=== PATIENT | female | born 1940 | race Caucasian/White ===

== ENCOUNTER → 2016-10-13 | Outpatient (CLI) | payer MEDICARE ==
--- NOTE | 2016-10-13 13:37 | MM ---
Reason for exam: history of breast cancer, conservation therapy. Last mammogram was performed 1 year and 2 months ago. History: Patient is postmenopausal and has history of breast cancer at age 59. Family history of premenopausal breast cancer in sister at age 30. Malignant stereotactic core biopsy of the right breast, August 07, 2000. Benign excisional biopsy, May 30, 1997. 2 cyst aspirations of the right breast. Core biopsy of the right breast. Excisional biopsy. Lumpectomy of the right breast. Radiation therapy of the right breast. Took estrogen for 6 years. Took antineoplastic for 1 year. Physical Findings: Nurse did not find any significant physical abnormalities on exam. MG 3D Diag Mammo W/Cad JAN Bilateral CC and MLO view(s) were taken. Prior study comparison: August 09, 2015, bilateral MG 3d diag mammo w/cad JAN. August 04, 2014, bilateral MG diagnostic mammo w CAD JAN. There are scattered fibroglandular densities. Stable post operative changes in the right breast. These results were verbally communicated with the patient and result sheet given to the patient on 10/13/16. ASSESSMENT: Benign, BI-RAD 2 RECOMMENDATION: Follow-up diagnostic mammogram of both breasts in 1 year.
== END | disposition home or self-care (01) ==
LOC: RADMAMWWP 12:39
PROVIDERS: ATTEND Internal Medicine
DX: R92.8 Other abnormal and inconclusive findings on diagnostic imaging of breast (principal)
CPT/HCPCS: G0204; G0279

== ENCOUNTER → 2019-02-16 | Outpatient (CLI) | payer MEDICARE ==
--- NOTE | 2019-02-16 11:09 | MM ---
Reason for exam: additional evaluation requested from prior study. Last mammogram was performed 2 years and 4 months ago. History: Patient is postmenopausal and has history of breast cancer at age 59. Family history of premenopausal breast cancer in sister at age 30. Malignant stereotactic core biopsy of the right breast, August 07, 2000. Benign excisional biopsy, May 30, 1997. 2 cyst aspirations of the right breast. Core biopsy of the right breast. Excisional biopsy. Lumpectomy of the right breast. Radiation therapy of the right breast. Took estrogen for 6 years. Took antineoplastic for 1 year. Physical Findings: Nurse did not find any significant physical abnormalities on exam. MG 3D Diag Mammo W/Cad JAN Bilateral CC and MLO view(s) were taken. Prior study comparison: October 13, 2016, bilateral MG 3d diag mammo w/cad JAN. August 09, 2015, bilateral MG 3d diag mammo w/cad JAN. There are scattered fibroglandular densities. Post therapy change on the right. These results were verbally communicated with the patient and result sheet given to the patient on 02/16/19. ASSESSMENT: Benign, BI-RAD 2 RECOMMENDATION: Follow-up diagnostic mammogram of both breasts in 1 year.
== END | disposition home or self-care (01) ==
LOC: RADMAMWWP 10:04
PROVIDERS: ATTEND Internal Medicine
DX: Z08 Encounter for follow-up examination after completed treatment for malignant neoplasm (principal); Z85.3 Personal history of malignant neoplasm of breast
CPT/HCPCS: 77066; G0279; 77062

== ENCOUNTER → 2020-09-21 | Outpatient (CLI) | payer MEDICARE ==
--- NOTE | 2020-09-25 10:43 | MM ---
Reason for exam: screening (asymptomatic). Last mammogram was performed 1 year and 7 months ago. History: Patient is postmenopausal and has history of breast cancer at age 59. Family history of premenopausal breast cancer in sister at age 30. Malignant stereotactic core biopsy of the right breast, August 07, 2000. Benign excisional biopsy, May 30, 1997. 2 cyst aspirations of the right breast. Core biopsy of the right breast. Excisional biopsy. Lumpectomy of the right breast. Radiation therapy of the right breast. Took estrogen for 6 years. Took antineoplastic for 1 year. Physical Findings: A clinical breast exam by your physician is recommended on an annual basis and results should be correlated with mammographic findings. MG 3D Screening Mammo W/Cad Bilateral CC and MLO view(s) were taken. Prior study comparison: February 16, 2019, bilateral MG 3d diag mammo w/cad JAN. October 13, 2016, bilateral MG 3d diag mammo w/cad JAN. There are scattered fibroglandular densities. There is chronic nodularity in the left breast posteriorly was present in 2017. Stable post surgical and post therapy change right breast with fat necrosis calcifications. No significant changes when compared with prior studies. ASSESSMENT: Benign, BI-RAD 2 RECOMMENDATION: Routine screening mammogram of both breasts in 1 year.
== END | disposition home or self-care (01) ==
LOC: RADMAMWWP 13:35
PROVIDERS: ATTEND Internal Medicine
DX: Z12.31 Encounter for screening mammogram for malignant neoplasm of breast (principal)
CPT/HCPCS: 77063; 77067

== ENCOUNTER → 2021-07-23 | Outpatient (CLI) | payer MEDICARE ==
--- NOTE | 2021-07-23 12:32 | MM ---
Reason for exam: clinical finding. Last mammogram was performed 10 months ago. History: Patient is postmenopausal and has history of breast cancer at age 59. Family history of premenopausal breast cancer in sister at age 30. Malignant stereotactic core biopsy of the right breast, August 07, 2000. Benign excisional biopsy, May 30, 1997. 2 cyst aspirations of the right breast. Core biopsy of the right breast. Excisional biopsy. Lumpectomy of the right breast. Radiation therapy of the right breast. Took estrogen for 6 years. Took antineoplastic for 1 year. Physical Findings: Nurse Summary: 0.5cm nodule in the right breast at 9 o'clock (nurse jax). MG 3D Diag Mammo W/Cad JAN Bilateral CC, MLO, and XCCL view(s) were taken. Prior study comparison: September 21, 2020, bilateral MG 3d screening mammo w/cad. February 16, 2019, bilateral MG 3d diag mammo w/cad JAN. There are scattered fibroglandular densities. Finding: There is decrease in size, architectural distortion and benign dystrophic calcifications in the right breast. There is a chronic nodularity in the left breast. There is no discrete abnormality. These results were verbally communicated with the patient and result sheet given to the patient on 07/23/21. ASSESSMENT: Benign, BI-RAD 2 RECOMMENDATION: Follow-up diagnostic mammogram of both breasts in 1 year.
== END | disposition home or self-care (01) ==
LOC: RADMAMWWP 08:12
PROVIDERS: ATTEND Internal Medicine
DX: R92.1 Mammographic calcification found on diagnostic imaging of breast (principal); N64.89 Other specified disorders of breast; Z78.0 Asymptomatic menopausal state; Z80.3 Family history of malignant neoplasm of breast; Z85.3 Personal history of malignant neoplasm of breast
CPT/HCPCS: 77066; G0279; 77062

== ENCOUNTER → 2023-12-24 | Outpatient (CLI) | payer MEDICARE ==
--- NOTE | 2023-12-24 11:02 | MM ---
Reason for Exam: Hx of breast cancer, conservation therapy. Last mammogram was performed 1 year(s) and 2 month(s) ago. Patient History: Menarche at age 14. First Full-Term at age 20. Postmenopausal. Breast cancer, right, age 59. Previous chest radiation therapy at age 59. Patient used Estrogen for 6 years. Lumpectomy on the Right side. Core Biopsy on the Right side. Cyst Aspiration on the Right side. Cyst Aspiration on the Right side. Excisional Biopsy. 08/07/2000, Malignant Stereotactic Core Biopsy on the right side. Benign Excisional Biopsy. Radiation Therapy, right. Sister had breast cancer, age 30. Prior Study Comparison: 08/20/2000 Screening Mammogram, Unknown. 02/16/2019 Bilateral Diagnostic Mammogram, [facility]. 09/21/2020 Bilateral Screening Mammogram, [facility]. 07/23/2021 Bilateral Diagnostic Mammogram, [facility]. 10/15/2022 Bilateral MG 3D diag mammo w/cad JAN, [facility]. Tissue Density: There are scattered areas of fibroglandular density. Findings: Analyzed By CAD. Post surgical and post treatment change right breast with extensive fat necrosis calcifications. Some fluctuating benign intramammary and low axillary tail lymph nodes on the left. Benign vascular calcifications also present. No significant change from prior exams. Overall Assessment: Benign, BI-RAD 2 Management: Screening Mammogram of both breasts in 1 year. . Results were given to the patient verbally at the time of exam. Patient should continue monthly self-breast exams. A clinical breast exam by your physician is recommended on an annual basis. This exam should not preclude additional follow-up of suspicious palpable abnormalities. Note on Angeles scores and lifetime risk: 1. A Angeles score greater than 3% is considered moderate risk. If this is the case, consider specialist referral to assess eligibility for a risk reducing agent. 2. If overall lifetime risk for the development of breast cancer is 20% or higher, the patient may qualify for future screening with alternating mammogram and breast MRI. Electronically signed and approved by: Manjit Reyes M.D. Radiologist
--- NOTE | 2023-12-24 14:36 | BD ---
EXAMINATION TYPE: Axial Bone Density DATE OF EXAM: 12/24/2023 CLINICAL HISTORY: 83 years old Female. ICD-10 CODE: N95.1 MENOPAUSAL M85.88 DISORD BONE Z85.3 HX BR CA Height: 62 Weight: 182.5 FRAX RISK QUESTIONS: Alcohol (3 or more units per day): no Family History (Parent hip fracture): no Glucocorticoids (More than 3mos): no (Ex: prednisone, prednisolone, methylprednisolone, dexamethasone, and hydrocortisone). History of Fracture in Adulthood: no Secondary Osteoporosis: 1. Type 1 Diabetes: no 2. Hyperthyroidism: no 3. Menopause before 45: no 4. Malnutrition: no 5. Chronic liver disease: no Rheumatoid Arthritis: no Current Tobacco Use: no RISK FACTORS HISTORY OF: Hip Fracture (Right/Left): no Spine Fracture: no History of Wrist Fracture: no Surgery to Spine/Hip(right/left)/Wrist (right/left): no MEDICATIONS: Thyroid Medications: no Osteoporosis Medications:no EXAM MEASUREMENTS: Bone mineral densitometry was performed using the [employer] System. Bone mineral density as measured about the Lumbar spine is: ----- L1-L4(G/cm2): 1.197 T Score Values are as follows: ----- L1: -0.5 ----- L2: 0.0 ----- L3: 1.0 ----- L4: 0.0 ----- L1-L4: 0.1 Z Score Values are as follows: ----- L1: 0.8 ----- L2: 1.2 ----- L3: 2.2 ----- L4: 1.2 ----- L1-L4: 1.4 Bone mineral density has: decreased -1.6 % since study of: 06/22/2014 Bone mineral density about the R hip (g/cm2): 0.854 Bone mineral density about the L hip (g/cm2): 0.883 T Score values are as follows: -----R Neck: -1.1 -----L Neck: -1.3 -----R Total: -1.2 -----L Total: -1.0 Z Score values are as follows: -----R Neck: 0.8 -----L Neck: 0.5 -----R Total: 0.5 -----L Total: 0.7 Bone mineral density has: decreased -14.0 % since study of: 06/22/2014 FRAX%s: The graph provided illustrates a 12.0% chance for a major osteoporotic fx and a 2.8% chance f or the hips probability for fx in 10 years time. IMPRESSION: Osteopenia (T Score between -2.5 and -1). There is slightly increased risk of fracture and the patient may be considered for treatment. Re-Screen 2-5 years. NOTE: T-SCORE=SD OF THE YOUNG ADULT MEAN.
== END | disposition home or self-care (01) ==
LOC: RADBDWWP 09:48
PROVIDERS: ATTEND Internal Medicine
DX: M85.89 Other specified disorders of bone density and structure, multiple sites (principal); N95.1 Menopausal and female climacteric states; R92.323 Mammographic fibroglandular density, bilateral breasts; R92.1 Mammographic calcification found on diagnostic imaging of breast; Z85.3 Personal history of malignant neoplasm of breast; Z80.3 Family history of malignant neoplasm of breast; Z98.890 Other specified postprocedural states
CPT/HCPCS: 77080; 77066; G0279; 77062

== ENCOUNTER → 2024-12-27 | Outpatient (CLI) | payer MEDICARE ==
--- NOTE | 2024-12-27 13:33 | MM ---
Reason for Exam: Screening (asymptomatic). Last screening mammogram was performed 12 month(s) ago. Patient History: Menarche at age 14. First Full-Term at age 20. Postmenopausal. Breast cancer, right, age 59. Previous chest radiation therapy at age 59. Patient used Estrogen for 6 years. Lumpectomy on the Right side. Core Biopsy on the Right side. Cyst Aspiration on the Right side. Cyst Aspiration on the Right side. Excisional Biopsy. 08/07/2000, Malignant Stereotactic Core Biopsy on the right side. Benign Excisional Biopsy. Radiation Therapy, right. Sister had breast cancer, age 30. Prior Study Comparison: 07/23/2021 Bilateral Diagnostic Mammogram, [facility]. 10/15/2022 Bilateral MG 3D diag mammo w/cad JAN, [facility]. 12/24/2023 Bilateral MG 3D diag mammo w/cad JAN, [facility]. Tissue Density: There are scattered areas of fibroglandular density. Findings: Analyzed By CAD. Diminutive right breast secondary to postoperative lumpectomy changes. Dense dystrophic calcifications remain unchanged. No left-sided breast masses or suspicious calcifications present. Vascular calcifications noted bilaterally. Overall Assessment: Benign, BI-RAD 2 Management: Screening Mammogram of both breasts in 1 year. . Patient should continue monthly self-breast exams. A clinical breast exam by your physician is recommended on an annual basis. This exam should not preclude additional follow-up of suspicious palpable abnormalities. Note on Angeles scores and lifetime risk: 1. A Angeles score greater than 3% is considered moderate risk. If this is the case, consider specialist referral to assess eligibility for a risk reducing agent. 2. If overall lifetime risk for the development of breast cancer is 20% or higher, the patient may qualify for future screening with alternating mammogram and breast MRI. [facility], , 12/27/2024 1:27 PM. Electronically signed and approved by: Denys Christensen M.D. Radiologis
--- NOTE | 2024-12-27 13:43 | XR ---
EXAMINATION TYPE: XR chest 2V DATE OF EXAM: 12/27/2024 1:26 PM COMPARISON: Chest radiographs from 01/18/2011 TECHNIQUE: XR chest 2V Frontal and lateral views of the chest. CLINICAL INDICATION:Female, 84 years old with history of POST HX SMOKING; FINDINGS: Lungs/Pleura: No pneumothorax or pleural effusion. Right perihilar airspace opacities with rounded in ferior right perihilar 1.6 are nodular density. Pulmonary vascularity: Unremarkable. Heart/mediastinum: Cardiomediastinal silhouette is prominent in size. Atherosclerotic calcifications are seen in the aorta. Musculoskeletal: No acute osseous pathology. IMPRESSION: 1. Inferior perihilar 1.6 cm pulmonary nodular density. Recommend further evaluation with CT. 2. Right basilar patchy airspace opacities concerning for atelectasis versus infiltrates. [facility], , 12/27/2024 1:41 PM
== END | disposition home or self-care (01) ==
LOC: RADMAMWWP 12:49
PROVIDERS: ATTEND Internal Medicine
DX: Z12.31 Encounter for screening mammogram for malignant neoplasm of breast (principal); R92.323 Mammographic fibroglandular density, bilateral breasts; R92.1 Mammographic calcification found on diagnostic imaging of breast; J98.4 Other disorders of lung; Z78.0 Asymptomatic menopausal state; Z80.3 Family history of malignant neoplasm of breast; Z87.891 Personal history of nicotine dependence
CPT/HCPCS: 71046; 77063; 77067

== ENCOUNTER → 2025-01-20 | Outpatient (CLI) | payer MEDICARE ==
[2025-01-20 10:46] LABS: African American GFR (CKD) >90 (>60 ml/min/1.73 sqM); Blood Urea Nitrogen 24 mg/dL (7-17); Non-African American GFR(CKD) 85 (>60 ml/min/1.73 sqM)
--- NOTE | 2025-01-22 22:43 | CT ---
EXAMINATION TYPE: CT chest w con DATE OF EXAM: 01/20/2025 11:29 AM COMPARISON: Radiograph 12/27/2024 Multiple CTs of the chest with most recent on . CLINICAL INDICATION: Female, 84 years old with history of R93.89,R91.1,SOLITARY PULMONARY NODULE; [facility] , Lung nodules TECHNIQUE: Multiple axial images were obtained through the chest. Sagittal and coronal reformats were created for review. MIP was performed on a separate workstation. Contrast used:100 ml mL of Isovue [address] DLP: 614 mGycm, Automated exposure control for dose reduction was used. FINDINGS: The heart is borderline in size without pericardial effusion. Moderate aortic valve calcifications. L AD coronary artery calcifications. Aorta normal caliber with conventional arch vessel branching anatomy. Incidental retrocrural pharynge al course of the right carotid artery. Scattered [id number] atherosclerotic calcifications aort ic arch and descending thoracic aorta and moderate within the visualized upper abdominal aorta. Borderline enlarged caliber main right and left pulmonary arteries up to 2.6 cm may reflect underlyin g pulmonary hypertension. Upper right paratracheal lymph node 1.8 cm. Lower right paratracheal jevon mass 4.8 cm. Right hilar jevon mass 5.5 cm. Subcarinal node 2.1 cm. Right bronchial node 1.4 cm. A few right pericardiac nodes measuring up to 1.2 cm. Lower right paraesophageal lymph node 1.8 cm. There is moderate emphysematous change and a [id number] pleural effusion with pleural-based no dularity measuring up to 3.2 cm at the lower chest. There is prominent opacity some of which has a nodular configuration extending from the right hilum a nteriorly and medially along the pleural surface measuring up to 8.4 cm wide, refer to coronal image 41. A few hepatic hypodensities measuring up to 1.4 cm suggesting cysts. However, there is a hypodense so lid mass left liver lobe measuring 3.0 cm. Gallbladder mildly hydropic 4.2 cm wide but without any surrounding inflammation. Bilateral adrenal nodules measuring 1.9 cm each. Bones: Moderate degenerative disc disease mid thoracic spine with accentuated kyphosis and reversed S -shaped scoliotic curvature. Irregular and dystrophic calcifications right breast possibly posttraumatic or related to prior surge ry. Clinically correlate. 9 mm subcutaneous soft tissue deposit lower lateral left chest wall. IMPRESSION: 1. Further oncologic workup advised. There is mediastinal and right hilar adenopathy measuring up to 5.5 cm with malignant small to moderate right pleural effusion with pleural studding and contiguous m ass extending from the right hilum anteriorly and medially along the pleura measuring up to 8.4 cm wi de. Consider endobronchial assessment and diagnostic thoracentesis. 2. Additional right pericardiac, subcarinal, and lower right paraesophageal adenopathy. 9 mm subcutan eous soft tissue deposit lateral aspect of the lower left chest. 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 P ossible metastatic adrenal nodules measuring up to 1.9 cm. 3. Background COPD with moderate emphysema. Query prior surgery or trauma to the right breast. [facility], , 01/22/2025 10:41 PM
== END | disposition home or self-care (01) ==
LOC: RADCTMAIN 09:55
PROVIDERS: ATTEND Internal Medicine
DX: R91.1 Solitary pulmonary nodule (principal); R93.89 Abnormal findings on diagnostic imaging of other specified body structures; J91.0 Malignant pleural effusion; R59.0 Localized enlarged lymph nodes; C78.7 Secondary malignant neoplasm of liver and intrahepatic bile duct; J44.9 Chronic obstructive pulmonary disease, unspecified; J43.9 Emphysema, unspecified
CPT/HCPCS: 82565; 84520; 71260; 36415; Q9967

== ENCOUNTER → 2025-02-15 | Outpatient (CLI) | payer MEDICARE ==
--- NOTE | 2025-02-15 19:29 | MR ---
EXAMINATION TYPE: MR brain wo/w con DATE OF EXAM: 02/15/2025 10:14 AM COMPARISON: None. CLINICAL INDICATION: Female, 84 years old with history of C34.91, Hx breast/lung cancer, positive bio psy of posterior skull TECHNIQUE: Multiplanar, multiecho imaging on a 3.0 Na magnet is performed through the brain. Stud y is performed within 24 hours of arrival to the hospital.Multiplanar, multiecho imaging on a 3.0 Macy la magnet is performed through the knee. IV Contrast: 8 mL Gadobutrol (None, if empty) FINDINGS: The craniovertebral junction is normal. The pituitary is normal. Multiple calvarial hypointensities are present suspicious for multiple metastatic lesions. There is a subcutaneous nodule measuring 1.8 cm in the midline over the occiput, series 201 image 17. Diffusion-weighted imaging is performed. Hyperintensities within the left cerebellum, image 48. [place] area may be within the right cerebellum, image 56 there is a punctate hyperintensity within the left thalamus. Lateral ventricles, image 144 tiny cortical area of uptake may be present on the left parietal lobe, image 168 . Ventricular white matter hyperintensities present on inversion recovery and T2-weighted sequences l ikely on the basis of chronic white matter ischemic change There is a 1 cm enhancing lesion in the left cerebellum there is a 0.5 cm hyperintensity in the right cerebellum. Small ring-enhancing lesion is in the left frontal region, image 72 Ventricles and sulci are appropriate for the patient age. There may be an air-fluid level within the right maxillary sinus. IMPRESSION: 1. Ring-enhancing lesions within the cerebellum, left and right lobes, within the left frontal lobe s uspicious for active metastasis. 2. Multiple calvarial photopenic defects suspicious for metastatic disease. 3. Soft tissue collection in the left occipital vertex likely may be metastasis. [facility], , 02/15/2025 7:27 PM
== END | disposition home or self-care (01) ==
LOC: RADMRIMAIN 09:21
PROVIDERS: ATTEND Internal Medicine Hematology & Oncology
DX: C34.91 Malignant neoplasm of unspecified part of right bronchus or lung (principal); G93.89 Other specified disorders of brain
CPT/HCPCS: 70553; A9585

== ENCOUNTER 2025-02-16 14:47 | Day surgery (SDC) | payer MEDICARE ==
[2025-02-15 12:54] VITALS: BMI 30.4
[2025-02-16 15:42] VITALS: TEMP 98
[2025-02-16] MEDS: cloNIDine HCL 0.1 MG TAB PO STA (16:36)
--- NOTE | 2025-02-16 16:39 | P.PCN ---
Date of Procedure: 02/16/25 Preoperative Diagnosis: Pleural effusion, right Postoperative Diagnosis: Pleural effusion, right Procedure(s) Performed: Thoracentesis, right Anesthesia: local Surgeon: Phuong Brown Estimated Blood Loss (ml): 0 Pathology: other Condition: stable Disposition: same day Operative Findings: A time out was performed and the chest x-ray was reviewed, the appropriate side was confirmed and marked. My hands were washed immediately prior to the procedure. I wore a surgical cap, mask with protective eyewear, sterile gown and sterile gloves throughout the procedure. The patient was prepped and draped in a sterile manner using chlorhexidine scrub after the appropriate level was pe rcussed and confirmed by ultrasound. 1% lidocaine was used to anesthesize the skin, subcutaneous tissue, superior aspect of the rib periosteum and parietal pleura. A finder needle was then introduced over the superior aspect of the rib to locate the pleural fluid; 2colored fluid was aspirated at a depth of approximately 2 cm. A 10-blade scalpel was used to tristin the skin at the insertion site. The Czol-h-Pjqqcchv needle was then introduced through the skin incision into the pleural space using negative aspiration pressure and the red colometric indicator to confirm appropriate positioning of the needle. The thoracentesis catheter was then threaded without difficulty. 950ml of turbid colored fluid was removed without difficulty. The catheter was then removed. No immediate complications were noted during the procedure. A post-procedure chest x-ray is pending at the time of this note. The fluid will be sent for studies. Estimated blood loss is 0cc Postop chest x-ray shows no evidence of any pneumothorax
--- NOTE | 2025-02-16 16:39 | XR ---
EXAMINATION TYPE: XR chest 1V portable DATE OF EXAM: 02/16/2025 4:23 PM COMPARISON: Chest radiographs from 12/27/2024. CLINICAL INDICATION: Female, 84 years old with history of POST THORACENTESIS; [facility] TECHNIQUE: XR chest 1V portable Frontal view of the chest. FINDINGS: Lungs/Pleura: Blunting of the right costophrenic angle. There is no evidence of left pleural effusio n, focal consolidation, or pneumothorax Pulmonary vascularity: Unremarkable. Heart/mediastinum: Cardiomediastinal silhouette is unremarkable. Musculoskeletal: No acute osseous pathology. IMPRESSION: Small right pleural effusion no pneumothorax [facility], , 02/16/2025 4:37 PM
[2025-02-16 17:09] VITALS: RESP 20
[2025-02-16 17:10] VITALS: BP 189/81; PULSE 84
== END 2025-02-16 17:15 | disposition home or self-care (01) ==
LOC: ORWHC2ENDO 14:47
PROVIDERS: ATTEND Internal Medicine Critical Care Medicine
DX: J90 Pleural effusion, not elsewhere classified (principal); C78.7 Secondary malignant neoplasm of liver and intrahepatic bile duct; I10 Essential (primary) hypertension; E78.5 Hyperlipidemia, unspecified; J44.89 Other specified chronic obstructive pulmonary disease; E66.9 Obesity, unspecified; Z68.33 Body mass index [BMI] 33.0-33.9, adult; Z79.82 Long term (current) use of aspirin; Z79.899 Other long term (current) drug therapy; Z87.891 Personal history of nicotine dependence; Z85.3 Personal history of malignant neoplasm of breast; Z88.8 Allergy status to other drugs, medicaments and biological substances
CPT/HCPCS: 32554; 32555; 71045; 88108; 88305; 88341; 88342

== ENCOUNTER → 2025-02-17 | Outpatient (CLI) | payer MEDICARE | END | disposition home or self-care (01) | LOC: RADPETMAIN 09:46 | PROVIDERS: ATTEND Internal Medicine Critical Care Medicine | DX: Z53.9 Procedure and treatment not carried out, unspecified reason (principal) ==

== ENCOUNTER → 2025-02-24 | Outpatient (CLI) | payer MEDICARE ==
--- NOTE | 2025-02-24 14:10 | US ---
EXAMINATION TYPE: US venous doppler duplex LE LT DATE OF EXAM: 02/24/2025 1:56 PM COMPARISON: NONE CLINICAL INDICATION: Female, 84 years old with history of R220 LOCALIZED SWELLING, MASS AND LUMP, HEA D; Numbness within left leg, no h/o dvt TECHNIQUE: The lower extremity deep venous system is examined utilizing real time linear array sonog jer with graded compression, color doppler sonography, and spectral doppler. SIDE PERFORMED: Left FINDINGS: VESSELS IMAGED: Common Femoral Vein Deep Femoral Vein Greater Saphenous Vein * Femoral Vein Popliteal Vein Small Saphenous Vein * Proximal Calf Veins (* superficial vessels) Left Leg: Negative for DVT, Color Doppler imaging shows patency of the vessels. Spectral waveforms a re within normal limits. IMPRESSION: No ultrasound evidence for deep venous thrombosis. [facility], , 02/24/2025 2:08 PM
--- NOTE | 2025-02-24 14:48 | XR ---
EXAMINATION TYPE: XR Hip Bilateral and AP pelvis DATE OF EXAM: 02/24/2025 COMPARISON: NONE CLINICAL INDICATION: Female, 84 years old with history of M25.552 HIP PAIN R10.2 PEL; TECHNIQUE: A single AP view of the pelvis is obtained. Two views of the bilateral hip are obtained. FINDINGS: There is no acute fracture/dislocation evident in the pelvis. The hip and sacroiliac join ts appear symmetric and unremarkable. The overlying soft tissue appears unremarkable. Two views of bilateral hip show no acute fracture or dislocation. No focal lytic or sclerotic lesion seen in the proximal bilateral femur. The overlying soft tissue is unremarkable. IMPRESSION: There is no acute bilateral fracture or dislocation in the pelvis or bilateral hip. [facility], , 02/24/2025 2:46 PM
== END | disposition home or self-care (01) ==
LOC: RADUSWWP 13:29
PROVIDERS: ATTEND Internal Medicine Critical Care Medicine
DX: R22.0 Localized swelling, mass and lump, head (principal); M25.552 Pain in left hip; R10.2 Pelvic and perineal pain
CPT/HCPCS: 73521

== ENCOUNTER → 2025-03-03 | Outpatient (CLI) | payer MEDICARE ==
--- NOTE | 2025-03-04 10:01 | PE ---
EXAMINATION TYPE: PET CT fusion skull to thigh DATE OF EXAM: 03/03/2025 CLINICAL INDICATION:Female, 84 years old with history of R59.0 LOCALIZED ENLARGED LYMPH NODES; TECHNIQUE: Following the intravenous administration of 11.5 mCi of F-18 FDG, whole body images are performed from the skull base to the Mid thigh. Images are reviewed on the computer in the coronal, axial, and sagittal planes. Reconstructed rotating images are created on independent workstation and reviewed on the computer. A non-contrast CT is performed in conjunction with the PET scan. Glucose level 99 mg/dL CT DLP: 602 mGycm, Automated exposure control for dose reduction was used. COMPARISON: CT 01/20/2025, PET/CT None, MRI: None FINDINGS: Mediastinal SUV mean is 2.3. Hepatic parenchyma SUV mean is 3.0. SKULL BASE AND NECK: Suspicious uptake identified; examples include: Right maxillary sinus uptake max SUV 17.7. CHEST, MEDIASTINUM, AND HILAR REGION: Suspicious uptake identified; examples include: Right perihilar lymph nodes seen on prior 01/20/2025 have decreased in size along now max SUV 8.4 in t he right suprahilar region. Max SUV 12.2 along the pleura anteriorly on the right. Right low paratrac heal lymph nodes max SUV 5.9. Epicardial fat lymph nodes on the right are no longer visualized. ABDOMEN AND PELVIS: Suspicious uptake identified; examples include: * Right hepatic lobe mass with FDG uptake max SUV 7.8 measuring 19 mm. MUSCULOSKELETAL STRUCTURES: Suspicious uptake identified; examples include: * L4 vertebral body max SUV 10.4. * L2 vertebral body max SUV 10.1 * Left sacrum max SUV 9.3. * Left superior acetabulum max SUV 6.1. * Left glenoid/scapula max SUV 7.4. * Left rib 3 medially max SUV 5.2. OTHER CT: Mucosal thickening in the right maxillary sinus. Right chest wall [id number] tip termina ting in the superior vena cava. Post surgical changes right breast. Simple appearing probable hepatic cysts. Bilateral fat-containing inguinal hernias. Scattered colonic diverticula. Mild emphysema romero ges. Trace right pleural effusion. Consolidation changes along the right anterior chest possibly post treatment. IMPRESSION: 1. Positive response to treatment with decrease in size of mediastinal lymph nodes and pleural-based mass seen on prior CT 01/20/2025. There remains FDG avid mediastinal lymph nodes and right pleural ma ss. Hepatic and osseous metastatic disease is present 2. Mucosal thickening in the right maxillary sinus with intense uptake. Further evaluation with MRI face with IV contrast recommended. [facility], , 03/04/2025 9:59 AM
== END | disposition home or self-care (01) ==
LOC: RADPETMAIN 11:38
PROVIDERS: ATTEND Internal Medicine Critical Care Medicine
DX: R59.0 Localized enlarged lymph nodes (principal); R91.1 Solitary pulmonary nodule; J34.89 Other specified disorders of nose and nasal sinuses
CPT/HCPCS: 78815; A9552